=== PATIENT | female | born 1985 | race Caucasian/White ===

== ENCOUNTER 2023-09-22 09:08 | Day surgery (SDC) | payer OTHER ==
[2023-09-22 09:59] VITALS: TEMP 97.9
[2023-09-22 10:26] VITALS: PULSE 86
[2023-09-22 10:56] VITALS: BP 117/69; RESP 18
--- NOTE | 2023-09-22 11:55 | US ---
EXAMINATION TYPE: US FNA thyroid first lesion, US FNA thyroid each add lesion DATE OF EXAM: 09/22/2023 10:44 AM CLINICAL INDICATION:Female, 38 years old with history of E04.2 NONTOXIC MULTINODULAR GOITER; , thyroi d nodule. COMPARISON: None ATTENDING: Dr. Damian Valentine PROCEDURE: Informed consent was obtained. The risks and benefits of the procedure were discussed with the patien t. The site was marked. Timeout procedure was performed Ultrasound imaging of the thyroid demonstrates right lower nodule and left dominant nodule The patient was prepped, draped in the usual sterile fashion, and locally anesthetized with 1% lidoca ine. Attention was taken to the left dominant nodule and five fine needle aspiration were then performed w ith a 25 gauge needle. Samples were sent to the pathology department for further analysis. Attention was turned to the right inferior nodule and five fine needle aspiration were then performe d with a 25 gauge needle. Samples were sent to the pathology department for further analysis. Patient tolerated the procedure without incident and was sent home in stable condition. IMPRESSION: Successful ultrasound guided fine needle aspiration of right lower and left dominant nodule.
== END 2023-09-22 11:00 | disposition home or self-care (01) ==
LOC: RADPROMAIN 09:08
PROVIDERS: ATTEND Surgery
DX: E04.2 Nontoxic multinodular goiter (principal)
CPT/HCPCS: 10005; 10006; 88173; 88305

== ENCOUNTER 2023-12-18 13:15 | Day surgery (SDC) | payer OTHER ==
[2023-12-18 13:58] VITALS: BP 106/67; PULSE 80; RESP 18; TEMP 98.8
--- NOTE | 2023-12-18 16:41 | US ---
EXAMINATION TYPE: US thyroid st tissue head/neck, US discontinued FNA panel DATE OF EXAM: 12/18/2023 COMPARISON: 09/22/2023 CLINICAL INDICATION: Female, 38 years old with history of E04.1; Thyroid nodules on meds follow up fr om previous. Nodules are not seen on today's exam. Technique: Grayscale imaging of the thyroid gland bilaterally. Technique: Canceled ultrasound guided fine-needle aspiration. GLAND SIZE: Right Lobe: 4.9 x 1.3 x 1.7 cm Overall Parenchyma: homogeneous Left Lobe: 4.7 x 2.0 x 1.9 cm Overall Parenchyma: homogeneous Isthmus Thickness: .2 cm NODULES RIGHT: # of nodules measured on right: 0 Prior thyroid nodules have resolved. LEFT: # of nodules measured on left: 0 Prior thyroid nodules have resolved. ISTHMUS: # of nodules measured in the isthmus: 0 Bilateral neck scanned, no evidence of lymphadenopathy. IMPRESSION: 1. No thyroid nodules visualized. The thyroid nodules previously biopsied are no longer visualized s uggesting prior infectious inflammatory process. The biopsy was subsequently canceled. Follow-up in 6 months recommended to ensure stability. 2. Canceled fine-needle aspiration has there are no nodules visualized. [facility], , 12/18/2023 4:38 PM
== END 2023-12-18 14:45 | disposition home or self-care (01) ==
LOC: RADPROMAIN 13:15
PROVIDERS: ATTEND Surgery
DX: E04.2 Nontoxic multinodular goiter (principal)
CPT/HCPCS: 76536